=== PATIENT | male | born 1970 | race African-American/Black ===

== ENCOUNTER 2024-04-20 08:37 | Inpatient (IN) | payer OTHER ==
[~2024-04-20] VITALS: Ht 177.8 cm; Wt 118.9 kg
[2024-04-20] MEDS: FUROSEMIDE 40MG/4ML VIAL IV NR (10:30)
[2024-04-20] MEDS: LABETALOL 5MG/ML 4ML INJ IV NR (10:35)
[2024-04-20 11:20] LABS: HEMATOCRIT. 44.9 % (42.0-52.0); MEAN CORPUSCULAR HEMOGLOBIN 26.4 pg (28.0-32.0); MEAN CORPUSCULAR HGB CONC 31.3 g/dL (31.0-37.0); MEAN CORPUSCULAR VOLUME 84.4 fL (80.0-94.0); PLATELET 187 x1000/uL (130-400); RED BLOOD CELL COUNT 5.32 mill/uL (4.7-6.1); RED CELL DISTRIBUTION WIDTH 22.7 % (11.6-14.6); WHITE BLOOD COUNT 18.9 x1000/uL (4.5-11.0)
[2024-04-20 11:30] LABS: CHLORIDE 99 mEq/L (98-107); SODIUM 133 mEq/L (136-145)
[2024-04-20 11:31] LABS: CALCIUM 9.5 mg/dL (8.7-10.4); CARBON DIOXIDE 17 mEq/L (21-32)
[2024-04-20 11:36] LABS: GLUCOSE 133 mg/dL (70-105); UREA NITROGEN BLOOD 92 mg/dL (9-23)
[2024-04-20 11:38] LABS: DIFFERENTIAL COMMENT 1
[2024-04-20 11:39] LABS: CREATININE 5.9 mg/dL (0.6-1.3); TROPONIN I HIGH SENSITIVITY 283 ng/L (3.0-53)
[2024-04-20] MEDS: FUROSEMIDE 100MG/10ML VIAL IV STA (11:48)
[2024-04-20 12:36] LABS: ANISOCYTOSIS 2+; HYPOCHROMASIA 1+; PLATELET ESTIMATE NORMAL
[2024-04-20] MEDS: INSULIN REGULAR (HUMULIN R) 1000UNITS/10ML VIAL IV ONE (12:36)
[2024-04-20] MEDS: DEXTROSE 50% WATER 50ML SYRINGE IV ONE (12:36)
[2024-04-20] MEDS: SODIUM BICARBONATE 8.4% 50MEQ/50ML SYR IV ONE (12:36)
[2024-04-20] MEDS: CALCIUM CHLORIDE 1GM/10ML SYR IV ONE (12:37)
[2024-04-20] MEDS: ALBUTEROL (0.083%) 2.5MG/3ML NEB HHN ONE (12:37)
[2024-04-20] MEDS: DEXTROSE 50% WATER 50ML SYRINGE IV SCH (12:38)
[2024-04-20] MEDS: SODIUM BICARBONATE 8.4% 50MEQ/50ML SYR IV SCH (12:39)
[2024-04-20] MEDS: INSULIN REGULAR (HUMULIN R) 1000UNITS/10ML VIAL IV SCH (12:40)
[2024-04-20] MEDS: CALCIUM CHLORIDE 1GM/10ML SYR IV SCH (12:41)
[2024-04-20] MEDS: CEFTRIAXONE 1GM/50ML 50 ML IV NR (12:41)
[2024-04-20] MEDS: SODIUM POLYSTYRENE SULFONATE 15 G/60 ML BOT PO SCH (12:41)
[2024-04-20 13:20] LABS: TROPONIN I HIGH SENSITIVITY 269 ng/L (3.0-53)
[2024-04-20] MEDS: ENALAPRIL 2.5MG/2ML VIAL 2ML IV ONE (13:20)
[2024-04-20 13:36] VITALS: PULSE 82; RESP 16
[2024-04-20] MEDS: ALBUTEROL (0.083%) 2.5MG/3ML NEB HHN SCH (13:36)
[2024-04-20] MEDS ORDERED: ONDANSETRON HCL 4MG/2ML INJ IV PRN (14:15)
[2024-04-20] MEDS ORDERED: GUAIFENESIN 200MG/10ML SUGAR FREE UDC PO PRN (14:15)
[2024-04-20] MEDS ORDERED: MAGNESIUM/ALUMINUM HYDROXIDE/SIMETHICONE 30ML UDC PO PRN (14:15)
[2024-04-20] MEDS ORDERED: IPRATROPIUM/ALBUTEROL 0.5-3(2.5)MG/3ML NEB HHN PRN (14:15)
[2024-04-20] MEDS ORDERED: ACETAMINOPHEN 325MG TABLET PO PRN (14:15)
[2024-04-20] MEDS ORDERED: DOCUSATE SODIUM 100MG CAPSULE PO PRN (14:15)
[2024-04-20] MEDS ORDERED: CLONIDINE 0.1MG TABLET PO PRN (14:15)
[2024-04-20 15:10] LABS: LDL CHOLESTEROL 117 mg/dL (5-100); TRIGLYCERIDE 136 mg/dL (0-150)
[2024-04-20 15:12] LABS: ALANINE AMINOTRANSFERASE 29 IU/L (10-49); ALBUMIN 4.3 g/dL (3.2-4.8); ASPARTATE AMINOTRANSFERASE 57 IU/L (<34); BILIRUBIN DIRECT 2.7 mg/dL (<=3.0); BILIRUBIN TOTAL 4.3 mg/dL (0.1-1.0); CHOLESTEROL 158 mg/dL (<200); HDL CHOLESTEROL < 20 mg/dL (>55); PROTEIN TOTAL 8.1 g/dL (6.0-8.3)
[2024-04-20 15:14] LABS: T4 FREE 1.04 ng/dL (0.89-1.76); THYROID STIMULATING HORMONE 10.55 uIU/mL (0.55-4.78)
[2024-04-20] MEDS: DOXYCYCLINE 100MG/100ML 100 ML IV NR (16:49)
[2024-04-20] MEDS: AMLODIPINE 5MG TABLET PO NR (16:50)
[2024-04-20] MEDS: FUROSEMIDE 40MG/4ML VIAL IVP NR (16:50)
[2024-04-20 18:17] LABS: BG BASE EXCESS -4.8 mmol/L (-2.0-3.0); BG DEOXYHEMOGLOBIN 2.9 % (0.0-5.0); BG FRACTION INSPIRED OXYGEN 28; BG HCO3 ACT 18.1 mmol/L (21.0-28.0); BG METHEMOGLOBIN 0.1 % (0.5-1.5); BG PCO2 28.1 mmHg (35.0-48.0); BG PH 7.427 (7.350-7.450); BG PO2 89.6 mmHg (83.0-108.0); BG SAMPLE SITE RIGHT BRACHIAL; BG VENT MODE NASAL CANNULA
[2024-04-20] MEDS ORDERED: DEXTROSE 50% WATER 50ML SYRINGE IV PRN (19:00)
[2024-04-20] MEDS: INSULIN LISPRO 100 UNITS/ML SUBCUT SCH (21:15)
[2024-04-20] MEDS: BLOOD SUGAR DIAGNOSTIC STRIP TEST SCH (21:16)
[2024-04-20 22:10] VITALS: BP 144/115; PULSE 100; PULSE 86; RESP 15; RESP 16; TEMP 36.16956; TEMP 36.8628; O2SAT 98
[2024-04-20] MEDS: ATORVASTATIN CALCIUM 40MG TABLET PO SCH (23:01)
[2024-04-21] MEDS ORDERED: DEXTROSE 50% WATER 50ML SYRINGE IV PRN
[2024-04-21 00:05] VITALS: BP 124/46; PULSE 88; RESP 16; TEMP 36.16956; O2SAT 98
[2024-04-21 04:05] VITALS: BP 170/110; PULSE 88; RESP 14; TEMP 36.44736; O2SAT 95
[2024-04-21 04:39] LABS: CLARITY URINE CLEAR (CLEAR); COLOR URINE YELLOW (YELLOW); GLUCOSE URINE NEGATIVE (NEGATIVE); KETONES URINE NEGATIVE (NEGATIVE); LEUKOCYTE ESTERASE URINE TRACE (NEGATIVE); NITRITE URINE NEGATIVE (NEGATIVE); OCCULT BLOOD URINE 1+ (NEGATIVE); PROTEIN URINE 2+ (NEGATIVE); SPECIFIC GRAVITY URINE 1.012 (1.005-1.030); UROBILINOGEN URINE 0.2 E.U./dL (0.2-1.0)
[2024-04-21 04:42] LABS: *AMPHETAMINES SCREEN URINE NEGATIVE (NEGATIVE); *BARBITURATES SCREEN URINE NEGATIVE (NEGATIVE); *BENZODIAZEPINES SCREEN URINE NEGATIVE (NEGATIVE); *COCAINE SCREEN URINE NEGATIVE (NEGATIVE); METHADONE URINE SCREEN NEGATIVE (NEGATIVE)
[2024-04-21 04:43] LABS: CANNABINOID URINE SCREEN PRESUMPTIVE POSITIVE (NEGATIVE); ECSTASY MDMA SCREEN URINE NEGATIVE (NEGATIVE); OPIATES URINE SCREEN NEGATIVE (NEGATIVE); PHENCYCLIDINE URINE SCREEN NEGATIVE (NEGATIVE)
[2024-04-21 05:01] LABS: WBC URINE 0-2 /hpf (0-2)
[2024-04-21 05:02] LABS: RBC URINE 0-2 /hpf (0-2)
[2024-04-21 05:03] LABS: BACTERIA URINE TRACE; SQUAMOUS EPITHELIAL CELL URINE NONE SEEN /lpf (RARE/1+)
[2024-04-21] MEDS: LEVOTHYROXINE SODIUM 25MCG TABLET PO SCH (06:12)
[2024-04-21] MEDS ORDERED: HYDRALAZINE 20MG/ML VIAL IV PRN (07:30)
[2024-04-21 08:00] VITALS: BP 154/96; PULSE 85; RESP 13; TEMP 36.6696; O2SAT 98
[2024-04-21] MEDS ORDERED: BUME1TAB8 PO (08:14)
[2024-04-21 08:17] LABS: CALCIUM 9.2 mg/dL (8.7-10.4)
[2024-04-21] MEDS ORDERED: POTA-205 PO (08:17)
[2024-04-21] MEDS ORDERED: SEVE800T8 MT (08:17)
[2024-04-21] MEDS ORDERED: POTA-205 MT (08:17)
[2024-04-21] MEDS ORDERED: SODI650T PO (08:18)
[2024-04-21] MEDS ORDERED: AMLO10TA4 PO (08:18)
[2024-04-21] MEDS ORDERED: BISO10TA28 PO (08:19)
[2024-04-21] MEDS ORDERED: HYDR100T11 PO (08:20)
[2024-04-21] MEDS ORDERED: NPH,100V SQ (08:22)
[2024-04-21] MEDS ORDERED: INSU100V3 SUBCUT (08:23)
[2024-04-21] MEDS ORDERED: CITR15SO (08:24)
[2024-04-21] MEDS: INSULIN LISPRO 100 UNITS/ML SUBCUT SCH (08:27)
[2024-04-21 08:35] LABS: HEMATOCRIT. 43.9 % (42.0-52.0); HEMOGLOBIN. 13.7 g/dL (14.0-18.0); MEAN CORPUSCULAR HEMOGLOBIN 26.3 pg (28.0-32.0); MEAN CORPUSCULAR HGB CONC 31.1 g/dL (31.0-37.0); MEAN CORPUSCULAR VOLUME 84.4 fL (80.0-94.0); MEAN PLATELET VOLUME 10.3 fl (7.4-10.4); PLATELET 145 x1000/uL (130-400); RED CELL DISTRIBUTION WIDTH 22.5 % (11.6-14.6); WHITE BLOOD COUNT 13.3 x1000/uL (4.5-11.0)
[2024-04-21 08:51] LABS: DIFFERENTIAL COMMENT 1
[2024-04-21] MEDS ORDERED: METOLAZONE 10MG TABLET PO SCH (09:00)
[2024-04-21 09:19] LABS: CREATININE 5.5 mg/dL (0.6-1.3)
[2024-04-21 09:22] LABS: TROPONIN I HIGH SENSITIVITY 264 ng/L (3.0-53)
[2024-04-21] MEDS: FUROSEMIDE 100MG/10ML VIAL IVP SCH (10:22)
[2024-04-21] MEDS: AMLODIPINE 10MG TABLET PO SCH (10:24)
[2024-04-21] MEDS: ACETAMINOPHEN 325MG TABLET PO PRN (10:47)
[2024-04-21] MEDS ORDERED: DOXYCYCLINE 100MG/100ML 100 ML IV SCH (11:30)
[2024-04-21 12:00] VITALS: BP 147/116; PULSE 83; RESP 12; TEMP 36.78072; O2SAT 99
[2024-04-21] MEDS: METOLAZONE 5MG TABLET PO SCH (13:18)
[2024-04-21] MEDS: HYDRALAZINE HCL 100MG TABLET PO SCH (13:18)
[2024-04-21] MEDS: CEFTRIAXONE 1GM/50ML 50 ML IV SCH (13:19)
[2024-04-21] MEDS: DOXYCYCLINE 100MG/100ML 100 ML IV SCH (13:19)
[2024-04-21 16:00] VITALS: BP 143/107; PULSE 85; RESP 11; O2SAT 98
[2024-04-21 20:04] VITALS: BP 157/95; PULSE 87; RESP 15; TEMP 36.28068; O2SAT 97
[2024-04-21 21:20] LABS: ANISOCYTOSIS 1+; PLATELET ESTIMATE NORMAL
[2024-04-22 00:04] VITALS: BP 146/89; PULSE 89; RESP 13; TEMP 36.22512; O2SAT 97
[2024-04-22 04:04] VITALS: BP 147/88; PULSE 89; RESP 12; TEMP 36.55848; O2SAT 97
[2024-04-22 07:22] LABS: HEMATOCRIT. 45.2 % (42.0-52.0); HEMOGLOBIN. 14.4 g/dL (14.0-18.0); MEAN CORPUSCULAR HGB CONC 31.7 g/dL (31.0-37.0); MEAN CORPUSCULAR VOLUME 82.1 fL (80.0-94.0); MEAN PLATELET VOLUME 9.8 fl (7.4-10.4); PLATELET 142 x1000/uL (130-400); RED BLOOD CELL COUNT 5.51 mill/uL (4.7-6.1); RED CELL DISTRIBUTION WIDTH 23.1 % (11.6-14.6); WHITE BLOOD COUNT 12.1 x1000/uL (4.5-11.0)
[2024-04-22 07:53] LABS: DIFFERENTIAL COMMENT 1
[2024-04-22 08:15] LABS: POTASSIUM 3.3 mEq/L (3.5-5.1)
[2024-04-22 08:16] LABS: CALCIUM 8.5 mg/dL (8.7-10.4)
[2024-04-22] MEDS: DOXYCYCLINE 100MG/100ML 100 ML IV SCH (08:53)
[2024-04-22] MEDS: METOLAZONE 10MG TABLET PO SCH (09:06)
[2024-04-22] MEDS: POTASSIUM CHLORIDE 20MEQ/PACKET PO NR (09:19)
[2024-04-22 18:57] VITALS: BP 154/89; PULSE 96; TEMP 97.6; O2SAT 96
[2024-04-22 20:00] VITALS: BP 148/88; PULSE 94; RESP 13; TEMP 36.89184; O2SAT 96
[2024-04-22 20:31] VITALS: BP 148/88; PULSE 94; TEMP 98.4; O2SAT 96
[2024-04-23] VITALS: BP 147/97; PULSE 94; RESP 13; TEMP 37.11408; O2SAT 100
[2024-04-23 09:15] LABS: PLATELET ESTIMATE NORMAL
[2024-04-23 09:16] LABS: ANISOCYTOSIS 2+
== END 2024-04-23 01:26 | disposition short-term general hospital (02) | DRG 871 ==
LOC: ER 08:37 → EDBEDREQSVC 18:10 → EDBEDREQTM 18:10 → 3WST 22:11
PROVIDERS: ADMIT Internal Medicine; ATTEND Internal Medicine
DX: A41.9 Sepsis, unspecified organism (principal); I21.A1 Myocardial infarction type 2; J18.9 Pneumonia, unspecified organism; I50.43 Acute on chronic combined systolic (congestive) and diastolic (congestive) heart failure; E87.1 Hypo-osmolality and hyponatremia; I13.0 Hypertensive heart and chronic kidney disease with heart failure and stage 1 through stage 4 chronic kidney disease, or unspecified chronic kidney disease; E78.5 Hyperlipidemia, unspecified; D64.9 Anemia, unspecified; E03.8 Other specified hypothyroidism; Z20.822 Contact with and (suspected) exposure to COVID-19; E66.01 Morbid (severe) obesity due to excess calories; E87.5 Hyperkalemia; E80.6 Other disorders of bilirubin metabolism; N18.9 Chronic kidney disease, unspecified; E11.65 Type 2 diabetes mellitus with hyperglycemia; E11.22 Type 2 diabetes mellitus with diabetic chronic kidney disease; I44.0 Atrioventricular block, first degree; Z79.4 Long term (current) use of insulin; Z79.899 Other long term (current) drug therapy; Z82.49 Family history of ischemic heart disease and other diseases of the circulatory system; Z87.891 Personal history of nicotine dependence; Z99.2 Dependence on renal dialysis; Z68.37 Body mass index [BMI] 37.0-37.9, adult
CPT/HCPCS: 36415; 36600; 71045; 73610; 76770; 80048; 80061; 80076; 80305; 81003; 82375; 82533; 82805; 82962; 83036; 83880; 84145; 84439; 84443; 84481; 84484; 85025; 86376; 87426; 87804; 93005; 93970; 94640; 99285; A4606; J0696; J1815; J1940; J3490